=== PATIENT | male | born 1955 | race Caucasian/White ===

== ENCOUNTER 2025-07-22 20:06 | Emergency (ER) | payer BC | END 2025-07-22 22:26 | disposition home or self-care (01) | LOC: JD.ED 20:06 | DX: S62.631B Displaced fracture of distal phalanx of left index finger, initial encounter for open fracture (principal); Z86.16 Personal history of COVID-19; W26.8XXA Contact with other sharp object(s), not elsewhere classified, initial encounter | CPT/HCPCS: 12001; 73130; 99282; A9270; J2003 ==